=== PATIENT | male | born 1950 ===

== ENCOUNTER 2021-09-29 22:46 | Inpatient (IN) | payer MEDICARE, MEDICAID ==
[~2021-09-29] VITALS: Ht 175.3 cm; Wt 72.6 kg
[2021-09-29 23:53] LABS: HEMOGLOBIN 12.9 gm/dl (14.0-17.5); RED BLOOD COUNT 4.58 M/UL (4.20-5.50); WHITE BLOOD COUNT 40.4 K/UL (4.5-11.0)
[2021-09-30 01:30] LABS: BUN/CREATININE RATIO 40 (0-10)
--- NOTE | 2021-09-30 11:17 | NUR ---
1030 - MD HERE TO DISCUSS COMFORT CARE WITH AND OTHER FAMILY MEMBERS. THEY ARE IN AGREEMENT TO PROVIDE COMFORT MEASURES, REMOVE ALL MEDICATIONS AND EXTUBATE PT. 1045 - EXPLAINED PROCESS OF EXTUBATION TO FAMILY. VERBALIZED UNDERSTANDING. RT CALLED TO BEDSIDE. ALL IV MEDICATIONS STOPPED AND MORPHINE GIVEN. PT'S SON AT BEDSIDE AND CONCERNED THAT MORPHINE WILL NOT BE ENOUGH FOR PT AND THAT HE WILL SMOTHER WITHOUT O2. SON REASSURED AND O2 @ 2L/NC AT BEDSIDE TO APPLY AT EXTUBATION. 1058 - PT EXTUBATED AND NC APPLIED. SON, AND OTHER FAMILY MEMBERS AT BEDSIDE. NO RESP EFFORT NOTED AFTER EXTUBATION. SEE VS SHEET FOR VS. FAMILY REQUEST PRIVACY. STAFF LEFT AND DOOR CLOSED. 1109 - PT WITH ASYSTOLE ON MONITOR. AUSCULTATED X 1 MINUTE WITH NO HEART TONES NOTED, NO RESP EFFORT NOTED. FAMILY AWARE OF PT'S . 1111 - MD NOTIFIED OF .
== END 2021-09-30 14:44 | disposition expired | DRG 871 ==
LOC: ER1 22:46 → CCU 09-30 00:54 → CDU 09-30 00:54 → CCU 09-30 02:33
PROVIDERS: Family Medicine; ADMIT Internal Medicine
PROC: 3E043XZ Introduction of Vasopressor into Central Vein, Percutaneous Approach (ICD-10-PCS; 2021-09-29)
PROC: 5A2204Z Restoration of Cardiac Rhythm, Single (ICD-10-PCS; principal; 2021-09-30)
PROC: 3E03329 Introduction of Other Anti-infective into Peripheral Vein, Percutaneous Approach (ICD-10-PCS; 2021-09-30)
PROC: 5A1935Z Respiratory Ventilation, Less than 24 Consecutive Hours (ICD-10-PCS; 2021-09-30)
PROC: 5A12012 Performance of Cardiac Output, Single, Manual (ICD-10-PCS; 2021-09-30)
PROC: 02HV33Z Insertion of Infusion Device into Superior Vena Cava, Percutaneous Approach (ICD-10-PCS; 2021-09-30)
DX: A41.9 Sepsis, unspecified organism (principal); R65.21 Severe sepsis with septic shock; J96.21 Acute and chronic respiratory failure with hypoxia; J18.9 Pneumonia, unspecified organism; I47.2 Ventricular tachycardia; Z20.822 Contact with and (suspected) exposure to COVID-19; E87.0 Hyperosmolality and hypernatremia; N17.9 Acute kidney failure, unspecified; J44.0 Chronic obstructive pulmonary disease with (acute) lower respiratory infection; G93.1 Anoxic brain damage, not elsewhere classified; Z66 Do not resuscitate; Z51.5 Encounter for palliative care; F17.200 Nicotine dependence, unspecified, uncomplicated; R57.0 Cardiogenic shock; Z83.3 Family history of diabetes mellitus; Z99.81 Dependence on supplemental oxygen; Z83.6 Family history of other diseases of the respiratory system; E87.6 Hypokalemia
CPT/HCPCS: 0240U; 31500; 36600; 70450; 71045; 71250; 80048; 80053; 81001; 82550; 82553; 82803; 83605; 83735; 83880; 84100; 84484; 85007; 85027; 85610; 86140; 86850; 86900; 86901; 87086; 93005; 94002; 94760; 96374; 99285; C9113; J0696; J1720; J2270; J2370; J2543; J3370; J3475; J3480; J7030; J7070; P9045